=== PATIENT | female | born 1990 | race African-American/Black ===

== ENCOUNTER → 2020-05-31 | Outpatient (CLI) | payer OTHER | LOC: COL.RAD 12:30 | DX: R25.3 Fasciculation (principal); F41.9 Anxiety disorder, unspecified; H53.9 Unspecified visual disturbance; R47.9 Unspecified speech disturbances; R53.1 Weakness ==

== ENCOUNTER → 2020-06-21 | Outpatient (CLI) | payer OTHER | LOC: COL.CARD 09:51 | DX: R25.3 Fasciculation (principal); R47.9 Unspecified speech disturbances; H53.9 Unspecified visual disturbance; R53.1 Weakness; F41.9 Anxiety disorder, unspecified ==

== ENCOUNTER 2021-03-17 14:32 | Outpatient (RCR) | payer OTHER | END 2021-04-04 | disposition home or self-care (01) | LOC: WSST | DX: G31.84 Mild cognitive impairment of uncertain or unknown etiology (principal); G40.909 Epilepsy, unspecified, not intractable, without status epilepticus ==

== ENCOUNTER 2021-12-04 15:50 | Emergency (ER) | payer OTHER ==
[2021-12-04 16:16] LABS: BASO % 0.3 % (0.0-2.0); EOS % 0.6 % (0.0-4.0); GRAN # 3.6 K/mm3 (1.4-6.5); GRAN % 55.8 % (42.2-75.2); HEMATOCRIT 40.1 % (37.0-47.0); HEMOGLOBIN 13.3 g/dl (12.5-16.0); LYMPH # 2.2 K/mm3 (1.2-3.4); LYMPH % 33.8 % (20.0-51.0); MEAN CELL VOLUME 89 fl (80.0-100.0); MEAN CORPUSCULAR HEMOGLOBIN 30 pg (27-31); MEAN CORPUSCULAR HGB CONC 33 g/dl (33.0-37.0); MEAN PLATELET VOLUME 9.1 fl (7.4-10.4); MONO # 0.6 K/mm3 (0.1-0.6); MONO % 9.3 % (1.7-9.3); PLATELET COUNT 317 K/mm3 (130-400); RED BLOOD COUNT 4.51 M/mm3 (4.10-5.30); REDCELL DISTRIBUTION WIDTH-CV 13.3 % (11.5-14.5)
[2021-12-04 16:34] LABS: ALBUMIN 4.2 gm/dL (3.5-5.0); BILIRUBIN,TOTAL 0.5 mg/dL (0.2-1.2); C-REACTIVE PROTEIN 0.44 mg/dL (0.00-0.50); CALCIUM 9.9 mg/dL (8.4-10.2); CREATININE, serum 1.01 mg/dL (0.57-1.11); POTASSIUM 3.5 mmol/L (3.5-4.5); TOTAL PROTEIN 8.5 gm/dL (6.2-8.1)
[2021-12-04 16:53] LABS: PROLACTIN 20.9 ng/mL (5.18-26.53)
[2021-12-04 17:15] VITALS: TEMP 97.9
[2021-12-04 17:41] LABS: COLLECTION METHOD CLEAN CATCH
[2021-12-04 17:57] LABS: URINE BACTERIA Rare /hpf (NONE SEEN); URINE RBC 0-2 /hpf (0-2)
[2021-12-04 17:59] LABS: URINE APPEARANCE Clear (CLEAR/HAZY); URINE BLOOD Negative (NEGATIVE); URINE COLOR Yellow (YELLOW); URINE GLUCOSE Negative (NEGATIVE); URINE KETONE Negative (NEGATIVE); URINE NITRATE Negative (NEGATIVE); URINE PROTEIN(semi-quant) Negative (NEGATIVE); URINE UROBILINOGEN 0.2 E.U/dL (0.2-1.0)
[2021-12-04 19:28] VITALS: BP 123/78; PULSE 85
== END 2021-12-04 19:32 | disposition home or self-care (01) ==
LOC: COL.ER 15:50
PROVIDERS: Family Medicine
DX: G40.409 Other generalized epilepsy and epileptic syndromes, not intractable, without status epilepticus (principal); Z79.899 Other long term (current) drug therapy
CPT/HCPCS: J1790; J7120

== ENCOUNTER → 2022-02-06 | Outpatient (CLI) | payer OTHER | LOC: COL.RAD 13:50 | DX: R56.9 Unspecified convulsions (principal) | CPT/HCPCS: A9575 ==